=== PATIENT | male | born 1995 | race Caucasian/White ===

== ENCOUNTER → 2017-05-20 | Outpatient (CLI) | payer OTHER ==
--- NOTE | 2017-05-20 17:15 | DIAGNOSTIC IMAGING REPORT ---
R SHOULDER MIN 2 VIEWS ROUTINE CLINICAL HISTORY: Right shoulder pain following injury. COMPARISON: None FINDINGS: Alignment of the right shoulder is anatomic. No acute fracture is identified. No abnormalities are identified within visualized portions of the right hemithorax. IMPRESSION: No acute fracture or dislocation of the right shoulder. Electronically signed by: Walker Benavides M.D. 05/20/2017 5:13 PM Dictated Date/Time: 05/20/2017 5:12 PM
== END | disposition home or self-care (01) ==
LOC: C.RAD 16:15
PROVIDERS: ATTEND Neuromusculoskeletal Medicine & OMM
DX: M25.511 Pain in right shoulder (principal)